=== PATIENT | male | born 1985 | race Caucasian/White ===

== ENCOUNTER 2021-02-12 19:25 | Emergency (ER) | payer SELFPAY ==
--- NOTE | 2021-02-12 20:04 | EDM.PDOC ---
ED HPI GENERAL MEDICAL PROBLEM - General Chief Complaint: Skin Complaint Stated Complaint: SHINGLES Time Seen by Provider: 02/12/21 20:00 - History of Present Illness INITIAL COMMENTS - FREE TEXT/NARRATIVE: History of present illness: [] Review of systems: As per history of present illness and below otherwise all systems reviewed and negative. Past medical history: As per history of present illness and as reviewed below otherwise noncontributory. This patient has had a splenectomy and consideration himself therefore immunocompromise says that he had pain in the right groin getting 08 February. By 10 February he had a rash starting in the crease. Rash has become extensive around to the right flank into the right groin and in the superficial right thigh. Its excruciating pain and hurts to touch it. It is too painful to put his pants on but he forced himself to do so and come in today to try to get help. He suspects it might be shingles. He has no systemic signs of infection at this point. He also cannot take NSAIDs because of a history of renal insufficiency. Surgical history: As per history of present illness and as reviewed below otherwise noncontributory. Social history: No reported history of drug or alcohol abuse. Family history: As per history of present illness and as reviewed below otherwise noncontributory. Physical exam: Constitutional - well developed, well-nourished and in no acute distress HEENT - normocephalic, no evidence of trauma - external nose and mouth normal - no mass in neck and no JVD - mucosae moist EYES - full EOM, PERRL, no icterus - no evidence of inflammation, injection, or drainage Respiratory - no respiratory distress, equal bilateral expansion Musculoskeletal no gross deformity of long bones or joints - no tenderness, swelling or edema Neurologic - Alert and oriented times four - CN II-XII grossly intact - motor sensory and coordination symmetrically normal Psychiatric - appropriate mood and affect with normal thought content Hematologic - No petechiae or purpura - mucosa appropriate color and sclera not pale - normal nail bed color and refill Integument -the patient has a rash that is typical for shingles but quite extensive although only in the dermatome of the lowest lateral posterior lumbar area around to the inguinal area and proximal thigh. He has no other rash. It is a maculopapular rash with some vesicles. No evidence of trauma - normal turgor Diagnostics: [] Therapeutics: [] Impression: [] Plan: [] Definitive disposition and diagnosis as appropriate pending reevaluation and review of above. right upper leg/back Pain Score (Numeric/FACES): 6 - Related Data Allergies Allergy/AdvReac Type Severity Reaction Status Date / Time No Known Allergies Allergy Verified 02/12/21 20:00 Home Meds: Home Meds Acetaminophen/oxyCODONE [Percocet 325-5 MG] 1 - 2 each PO Q4HR PRN #20 tab 02/12/21 [Rx] Sertraline HCl [Zoloft] 50 mg PO DAILY 02/12/21 [History] buPROPion HCL [Wellbutrin Xl] 300 mg PO DAILY 02/12/21 [History] lisinopriL [Lisinopril] 10 mg PO DAILY 02/12/21 [History] methylPREDNISolone [Medrol Dose Pack] 4 mg PO DAILY #21 tab 02/12/21 [Rx] valACYclovir HCl [valACYclovir] 1,000 mg PO TID 10 Days #30 tablet 02/12/21 [Rx] ED ROS GENERAL - Review of Systems Review Of Systems: Comprehensive ROS is negative, except as noted in HPI. ED EXAM, SKIN/RASH Exam: See Below Text/Narrative:: My physical exam is in the HPI Course - Vital Signs Last Recorded V/S: Last Vital Signs Temp 36.1 C 02/12/21 20:02 Pulse 102 H 02/12/21 20:02 Resp 18 02/12/21 20:02 BP 147/91 H 02/12/21 20:02 Pulse Ox 96 02/12/21 20:02 - Orders/Labs/Meds Meds: Medications Discontinued Medications Generic Name Dose Route Start Last Admin Trade Name Freq PRN Reason Stop Dose Admin Dexamethasone 10 mg 02/12/21 20:23 Dexamethasone 10 Mg/Ml Sdv IM 02/12/21 20:24 STAT STA Oxycodone/Acetaminophen 1 tab 02/12/21 20:23 Acetaminophen/Oxycodone 325-10 Mg Tab PO 02/12/21 20:24 ONETIME ONE Valacyclovir HCl 1,000 mg 02/12/21 20:25 Valacyclovir 500 Mg Tab PO 02/12/21 20:26 ONETIME ONE Departure - Departure Time of Disposition: 20:40 Disposition: Home, Self-Care 01 Condition: Good Clinical Impression: Shingles, History of splenectomy, History of renal insufficiency - Discharge Information Prescriptions: methylPREDNISolone [Medrol Dose Pack] 4 mg PO DAILY #21 tab Acetaminophen/oxyCODONE [Percocet 325-5 MG] 1 - 2 each PO Q4HR PRN #20 tab PRN Reason: Pain (Severe 7-10) valACYclovir HCl [valACYclovir] 1,000 mg PO TID 10 Days #30 tablet Instructions: Shingles, [id number] Referrals: PCP,None [Primary Care Provider] - Forms: ED Department Discharge Additional Instructions: If you get a stiff neck and headache with vomiting or if you get a high fever or if you get ration in the area of its not around one side of your body in 1 general area you should return because of your history of splenectomy and possible immunocompromise. [facility] - [facility] Care [address] [place] [address] [place] [address] My discharge Sepsis Event Note (ED) - Focused Exam Vital Signs: Vital Signs Temp Pulse Resp BP Pulse Ox 02/12/21 20:02 36.1 C 102 H 18 147/91 H 96
[2021-02-12] MEDS ORDERED: Acetaminophen/oxyCODONE 325-10 MG Tab PO ONE (20:23)
[2021-02-12] MEDS ORDERED: Dexamethasone 10 MG/ML SDV IM STA (20:23)
[2021-02-12] MEDS ORDERED: valACYclovir 500 MG Tab PO ONE (20:25)
== END 2021-02-12 21:08 | disposition home or self-care (01) ==
LOC: MW.ED 19:25
DX: B02.9 Zoster without complications (principal); Z90.81 Acquired absence of spleen; Z87.448 Personal history of other diseases of urinary system; Z79.899 Other long term (current) drug therapy
CPT/HCPCS: 96372; 99282; A9270; J1100; 99283

== ENCOUNTER 2021-03-25 21:19 | Emergency (ER) | payer SELFPAY ==
[2021-03-25] MEDS ORDERED: Ondansetron 4 MG/2 ML SDV IVPUSH ONE (21:56)
[2021-03-25] MEDS ORDERED: Sodium Chloride 0.9% 1,000 ML IV ONE ×2 (21:56→21:59)
[2021-03-25] MEDS ORDERED: Ketorolac 30 MG/ML SDV IVPUSH ONE (21:56)
[2021-03-25] MEDS ORDERED: Sodium Chloride 0.9% 10 ML Syringe FLUSH PRN (21:56)
[2021-03-25] MEDS ORDERED: Sodium Chloride 0.9% 2.5 ML Syringe FLUSH PRN (21:56)
[2021-03-25] MEDS ORDERED: fentaNYL 50 MCG/ML SDV IVPUSH ONE ×2 (21:56→23:22)
[2021-03-25 22:18] LABS: BLOOD UREA NITROGEN,BUN 18 mg/dL (7.0-18.0); CARBON DIOXIDE,CO2 28.3 mmol/L (21.0-32.0); CHLORIDE,CL 104 mmol/L (98-107); GLUCOSE RANDOM 121 mg/dL (74-106); LIPASE 123 U/L (73-393); POTASSIUM,K 3.9 mmol/L (3.5-5.1); SODIUM,NA 143 mmol/L (136-148)
--- NOTE | 2021-03-25 22:19 | EDM.PDOC ---
ED HPI GENERAL MEDICAL PROBLEM - General Chief Complaint: Genitourinary Problem Stated Complaint: URINATING BLOOD Time Seen by Provider: 03/25/21 21:50 - History of Present Illness INITIAL COMMENTS - FREE TEXT/NARRATIVE: HISTORY AND PHYSICAL: History of present illness: This is a 36-year-old gentleman with history significant for hypertension and kidney stone who presents to the ER today secondary to hematuria and flank pain that started since Friday with worsening hematuria today. Patient reports that he was diagnosed with a 5 mm stone when he was in [place] on February 26 that required a ureteral stent and antibiotics. Patient reports that he had completed his antibiotics and was doing well. Patient reports that he has a follow-up appointment on March 27 and was scheduled to fly out of [place] tomorrow morning so that he can see his urologist in [place]. Patient reports that he flew in to [place] on Friday and during his flight he started feeling pain and discomfort in his flank region. Patient reports that he started noticing blood-tinged urine throughout the course of the weekend with increasing degrees of colicky flank pain. Patient reports that the urine has become darker in color today and so came to the ER for further evaluation. Patient denies any recent fevers, shakes, chills. Patient denies any dysuria but does have frequency and urgency. Patient denies any chest pain or shortness of breath. Patient denies any abdominal pain or discomfort and reports his majority of his pain is in his flanks. Patient has any recent cough cold or rhinorrhea. Patient reports he has had decreased p.o. intake and significant nausea over the last 24 hours and was not able to keep down his antihypertensive medications today. Review of systems: As per history of present illness and below otherwise all systems reviewed and negative. Past medical history: As per history of present illness and as reviewed below otherwise noncontributory. Surgical history: As per history of present illness and as reviewed below otherwise noncontributory. Social history: No reported history of drug abuse. Family history: As per history of present illness and as reviewed below otherwise noncontribut ory. Physical exam: This patient was seen and evaluated during the 2019 SARS-CoV-2 novel coronavirus pandemic period. Community viral transmission is ongoing at time of this encounter and the emergency department is operating under pandemic response procedures. Constitutional: Patient is oriented to person, place, and time. Appears well- developed and well-nourished. No distress. HEENT: Moist mucous membranes Head: Normocephalic and atraumatic Eyes: Right eye exhibits no discharge. Left eye exhibits no discharge. No scleral icterus Neck: Normal range of motion. No tracheal deviation present. Cardiovascular: Normal rate and regular rhythm. Pulmonary: Effort normal, no respiratory distress. Abd: Soft, nondistended, no rebound/guarding, no psoas or obturator signs, no tenderness at Mcberney's point, no Marley's sign. Pt does not present with an exam that would be consistent with an acute surgical abdomen at this time with tenderness palpation to his right flank Musculoskeletal: Normal range of motion Neurologic: Alert and oriented to person, place and time. Skin: [place], warm and dry. Psychiatric: Normal mood and affect. Behavior is normal. Judgment and thought content normal. Nursing note and vital signs have been reviewed Diagnostics: CBC, CMP, urinalysis, CTA of the abdomen pelvis without IV contrast Therapeutics: NSS x2 L, Zofran, Toradol, fentanyl Assessment and plan: 36-year-old gentleman with history significant for 5 mm kidney stone that required a ureteral stent and antibiotics when he was in [place] on February 26 who presents ER today secondary to recurrence of his hematuria and flank pain that started on Friday and is progressively worsening over the last 48 hours. Patient denies any recent fevers, shakes, chills. Patient denies any dysuria but does have frequency and urgency. Patient will have a CT scan of his abdomen and pelvis performed as well as urinalysis to assess for any infection. Patient will be given adequate analgesia while here in the ED and hydration and will be reevaluated after the CT scan of the abdomen pelvis. 11:37 PM: Patient's labs were evaluated. Patient's urinalysis does not reveal any evidence of a urinary tract infection but does reveal a significant mount of blood consistent with patient's complaint. Patient is afebrile here in the ED and does not complain of any fevers at home. Patient's white count is slightly elevated however no left shift. Patient CT scan was reviewed and evaluated with the patient and he was given a copy that he can take it to his urologist on Friday. Patient has a mild amount of hydronephrosis with a 3 mm stone adjacent to his ureteral stent on the right side. At this time, the patient's pain appears to be well controlled. Patient be discharged home with a prescription for pain medicines to take until he is able to follow-up with his urologist as scheduled on Friday. Reassessment at the time of disposition demonstrates that the patient is in no acute distress. The patient has remained stable throughout the entire ED visit and is without objective evidence for acute process requiring urgent intervention or hospitalization. The patient is stable for discharge, counseling is provided as documented above, discussed symptomatic treatment and specific conditions for return. I have spoken with the patient/caregiver and discussed todays findings, in addition to providing specific details for the plan of care. Questions are answered and there is agreement with the plan. Definitive disposition and diagnosis as appropriate pending reevaluation and review of above. - Related Data Allergies Allergy/AdvReac Type Severity Reaction Status Date / Time tree nut Allergy Other Verified 03/25/21 21:50 Home Meds: Home Meds lisinopriL [Lisinopril] 10 mg PO DAILY 02/12/21 [History] Ibuprofen 600 mg PO Q6HR PRN #30 tablet 03/25/21 [Rx] Ondansetron [Zofran ODT] 4 mg PO Q6H PRN #12 tab.dis 03/25/21 [Rx] traMADol [Ultram] 50 mg PO Q6H PRN #12 tab 03/25/21 [Rx] Past Medical History HEENT History: Reports: None Cardiovascular History: Reports: Hypertension Respiratory History: Reports: None Gastrointestinal History: Reports: None Genitourinary History: Reports: None Musculoskeletal History: Reports: None Neurological History: Reports: None Psychiatric History: Reports: Anxiety, Depression Endocrine/Metabolic History: Reports: None Insulin Pump Model and Reclamation Engineer: None Hematologic History: Reports: None Immunologic History: Reports: None Oncologic (Cancer) History: Reports: None Dermatologic History: Reports: None - Infectious Disease History Infectious Disease History: Reports: Chicken Pox - Past Surgical History Head Surgeries/Procedures: Reports: None GI Surgical History: Reports: Other (See Below) Other GI Surgeries/Procedures: Splenectomy ED ROS GENERAL - Review of Systems Review Of Systems: See Below ED EXAM, GENERAL - Physical Exam Exam: See Below Course - Vital Signs Last Recorded V/S: Last Vital Signs Temp 96.4 F L 03/25/21 21:34 Pulse 102 H 03/25/21 21:34 Resp 20 07/18/21 21:34 BP 168/105 H 03/25/21 21:34 Pulse Ox 98 03/25/21 21:34 - Orders/Labs/Meds Orders: Active Orders 24 hr Category Date Time Status CULTURE URINE [MREF] Stat Lab 03/25/21 21:45 Received Sodium Chloride 0.9% [Saline Flush] Med 03/25/21 21:56 Active 10 ml FLUSH ASDIRECTED PRN Sodium Chloride 0.9% [Saline Flush] Med 03/25/21 21:56 Active 2.5 ml FLUSH ASDIRECTED PRN Saline Lock Insert [OM.PC] Stat Oth 03/25/21 21:58 Ordered Medication Orders Sodium Chloride (Sodium Chloride 0.9% 10 Ml Syringe) 10 ml FLUSH ASDIRECTED PRN PRN Reason: Keep Vein Open Sodium Chloride (Sodium Chloride 0.9% 2.5 Ml Syringe) 2.5 ml FLUSH ASDIRECTED PRN PRN Reason: Keep Vein Open Labs: Laboratory Tests 03/25/21 03/25/21 03/25/21 Range/Units 21:45 21:45 21:45 WBC 14.39 H (4.0-11.0) K/uL RBC 4.52 (4.50-5.90) M/uL Hgb 14.2 (13.0-17.0) g/dL Hct 40.9 (38.0-50.0) % MCV 90.5 (80.0-98.0) fL MCH 31.4 (27.0-32.0) pg MCHC 34.7 (31.0-37.0) g/dL RDW Std Deviation 50.7 (28.0-62.0) fl RDW Coeff of [place] 15 (11.0-15.0) % Plt Count 395 (150-400) K/uL MPV 11.80 (7.40-12.00) fL Neut % (Auto) 47.6 L (48.0-80.0) % Lymph % (Auto) 36.3 (16.0-40.0) % [place] % (Auto) 9.4 (0.0-15.0) % Eos % (Auto) 5.5 (0.0-7.0) % Baso % (Auto) 1.2 (0.0-1.5) % Neut # (Auto) 6.9 H (1.4-5.7) K/uL Lymph # (Auto) 5.2 H (0.6-2.4) K/uL [place] # (Auto) 1.4 H (0.0-0.8) K/uL Eos # (Auto) 0.8 H (0.0-0.7) K/uL Baso # (Auto) 0.2 H (0.0-0.1) K/uL Nucleated RBC % 0.0 /100WBC Nucleated RBCs # 0 K/uL Sodium 143 (136-148) mmol/L Potassium 3.9 (3.5-5.1) mmol/L Chloride 104 (98-107) mmol/L Carbon Dioxide 28.3 (21.0-32.0) mmol/L BUN 18 (7.0-18.0) mg/dL Creatinine 1.3 (0.8-1.3) mg/dL Est Cr Clr Drug Dosing TNP Estimated GFR (MDRD) > 60.0 ml/min Glucose 121 H (74-106) mg/dL Calcium 8.1 L (8.5-10.1) mg/dL Total Bilirubin 0.3 (0.2-1.0) mg/dL AST 18 (15-37) IU/L ALT 27 (14-63) IU/L Alkaline Phosphatase 150 H (46-116) U/L Total Protein 7.2 (6.4-8.2) g/dL Albumin 3.9 (3.4-5.0) g/dL Globulin 3.3 (2.6-4.0) g/dL Albumin/Globulin Ratio 1.2 (0.9-1.6) Lipase 123 (73-393) U/L Urine Color BROWN Urine Appearance SLT CLOUDY Urine pH 6.5 (5.0-8.0) Ur Specific [place] >= 1.030 (1.001-1.035) Urine Protein >=300 H (NEGATIVE) mg/dL Urine Glucose (UA) NEGATIVE (NEGATIVE) mg/dL Urine Ketones NEGATIVE (NEGATIVE) mg/dL Urine Occult Blood LARGE H (NEGATIVE) Urine Nitrite NEGATIVE (NEGATIVE) Urine Bilirubin NEGATIVE (NEGATIVE) Urine Urobilinogen 1.0 (<2.0) EU/dL Ur Leukocyte Esterase TRACE H (NEGATIVE) Urine RBC TOO NUMEROUS TO CT (0-2/HPF) Urine WBC 0-2 (0-5/HPF) Ur Epithelial Cells RARE (NONE-FEW) Calcium Oxalate Crystal FEW (NEGATIVE) Urine Bacteria FEW (NEGATIVE) Meds: Medications Generic Name Dose Route Start Last Admin Trade Name Caridad PRN Reason Stop Dose Admin Sodium Chloride 10 ml 03/25/21 21:56 Sodium Chloride 0.9% 10 Ml Syringe FLUSH ASDIRECTED PRN Keep Vein Open Sodium Chloride 2.5 ml 03/25/21 21:56 Sodium Chloride 0.9% 2.5 Ml Syringe FLUSH ASDIRECTED PRN Keep Vein Open Discontinued Medications Generic Name Dose Route Start Last Admin Trade Name Sathyaq PRN Reason Stop Dose Admin Fentanyl 50 mcg 03/25/21 21:56 03/25/21 22:22 Fentanyl 50 Mcg/Ml Sdv IVPUSH 03/25/21 21:57 50 mcg ONETIME ONE Administration Fentanyl 100 mcg 03/25/21 23:22 Fentanyl 50 Mcg/Ml Sdv IVPUSH 03/25/21 23:23 ONETIME ONE Sodium Chloride 1,000 mls @ 999 mls/hr 03/25/21 21:56 03/25/21 22:24 Normal Saline IV 03/25/21 22:56 999 mls/hr .Bolus ONE Administration Sodium Chloride 1,000 mls @ 999 mls/hr 03/25/21 21:59 03/25/21 22:22 Normal Saline IV 03/25/21 22:59 999 mls/hr .Bolus ONE Administration Ketorolac Tromethamine 30 mg 03/25/21 21:56 03/25/21 22:22 Ketorolac 30 Mg/Ml Sdv IVPUSH 03/25/21 21:57 30 mg ONETIME ONE Administration Ondansetron HCl 4 mg 03/25/21 21:56 03/25/21 22:22 Ondansetron 4 Mg/2 Ml Sdv IVPUSH 03/25/21 21:57 4 mg ONETIME ONE Administration Departure - Departure Time of Disposition: 23:38 Disposition: Home, Self-Care 01 Condition: Good Clinical Impression: Hydronephrosis concurrent with and due to calculi of kidney and ureter, S/P ureteral stent placement - Discharge Information Instructions: Kidney Stones, [id number], Hydronephrosis, Ureteral Stent Implantation, Care After, Ureteral Stent Implantation Referrals: PCP,None [Primary Care Provider] - Forms: ED Department Discharge Additional Instructions: You were seen and evaluated in the ER today secondary to pain to your right flank after stent placement and diagnosis of a stone in [place] on February 26. The [address] scan that we obtained today reveals a mild amount of swelling of your right kidney with a 3 mm stone at the junction of where your kidney meets your ureter right next to the ureteral stent. Your labs were essentially unremarkable. At this time, the pain that you are experiencing is likely secondary to bleeding from the ureteral stent and stone. Please keep your appointment with your urologist as scheduled on Friday to take the CT report that you were given with you so they can read it as well. You will be given a prescription for Ultram as well as ibuprofen to take and Zofran to assist with your nausea. The following information is given to patients seen in the emergency department who are being discharged to home. This information is to outline your options for follow-up care. We provide all patients seen in our emergency department with a follow-up referral. The need for follow-up, as well as the timing and circumstances, are variable depending upon the specifics of your emergency department visit. If you don't have a primary care physician on staff, we will provide you with a referral. We always advise you to contact your personal physician following an emergency department visit to inform them of the circumstance of the visit and for follow-up with them and/or the need for any referrals to a consulting specia list. The emergency department will also refer you to a specialist when appropriate. This referral assures that you have the opportunity for follow-up care with a specialist. All of these measure are taken in an effort to provide you with optimal care, which includes your follow-up. Under all circumstances we always encourage you to contact your private physician who remains a resource for coordinating your care. When calling for follow-up care, please make the office aware that this follow-up is from your recent emergency room visit. If for any reason you are refused follow-up, please contact the [facility] Emergency Department at and asked to speak to the emergency department charge nurse. [facility] Care [address] [place] [id number] [facility] [address] [place] [id number] Sepsis Event Note (ED) - Evaluation Sepsis Screening Result: Possible Sepsis Risk - Focused Exam Vital Signs: Vital Signs Temp Pulse Resp BP Pulse Ox 03/25/21 21:34 96.4 F L 102 H 20 168/105 H 98 - My Orders Last 24 Hours: My Active Orders 03/25/21 21:56 Sodium Chloride 0.9% [Saline Flush] 10 ml FLUSH ASDIRECTED PRN Sodium Chloride 0.9% [Saline Flush] 2.5 ml FLUSH ASDIRECTED PRN 03/25/21 21:58 Saline Lock Insert [OM.PC] Stat - Assessment/Plan Last 24 Hours: My Active Orders 03/25/21 21:56 Sodium Chloride 0.9% [Saline Flush] 10 ml FLUSH ASDIRECTED PRN Sodium Chloride 0.9% [Saline Flush] 2.5 ml FLUSH ASDIRECTED PRN 03/25/21 21:58 Saline Lock Insert [OM.PC] Stat
--- NOTE | 2021-03-25 23:16 | CT ---
For Patients: As a result of the Century Cures Act, medical imaging exams and procedure reports are released immediately into your electronic medical record. You may view this report before your referring provider. If you have questions, please contact your health care provider. INDICATION: left flank pain with hematuria CT ABDOMEN AND PELVIS WITHOUT CONTRAST TECHNIQUE: Multidetector CT imaging was performed through the abdomen and pelvis without intravenous contrast administration. Coronal and sagittal reconstructions were generated. COMPARISON: None. FINDINGS: Lower chest: Lung bases are clear. Liver: Within normal limits. Gallbladder and bile ducts: No gallbladder wall thickening or calcified gallstones. No biliary dilation identified. Pancreas: Unremarkable. Spleen: Status post splenectomy. Adrenals: No nodules or masses. Kidneys, ureters, and urinary bladder: Right ureteral stent with its proximal coil in the right renal pelvis and its distal coil within the urinary bladder. Tiny 3 millimeter stone alongside the stent at the right ureteral pelvic junction on image 75 of series 202. No other urinary tract stone identified. Mild dilation of the right intrarenal collecting system and right ureter. No left-sided urinary tract stone or left hydronephrosis. Bladder wall prominence due to nondistention. No bladder mass or definite wall thickening. Gastrointestinal tract: Normal caliber bowel without wall thickening. The appendix is normal. Vascular structures: Normal for age. Peritoneum: No free air, abscess, or significant free fluid. Lymph nodes: No pathologically enlarged nodes identified. Reproductive organs: No pelvic masses. Bones: Normal for age. IMPRESSION: 1. Right ureteral stent in place. 2. 3 millimeter stone at the right ureteropelvic junction alongside the stent. 3. Mild right hydroureteronephrosis. 4. Status post splenectomy. GEORGETTE MONTEIRO MD [employer] Dictated by Kalen Monteiro MD @ 03/25/2021 11:10:22 PM Please note that all CT scans at this facility use dose modulation, iterative reconstruction, and/or weight-based dosing when appropriate to reduce radiation dose to as low as reasonably achievable. Dictated by: Kalen Monteiro MD @ 03/25/2021 23:14:16 (Electronically Signed)
== END 2021-03-26 00:19 | disposition home or self-care (01) ==
LOC: MW.ED 21:19
DX: N13.2 Hydronephrosis with renal and ureteral calculous obstruction (principal); I10 Essential (primary) hypertension; Z91.010 Allergy to peanuts; Z79.899 Other long term (current) drug therapy; Z96.0 Presence of urogenital implants
CPT/HCPCS: 36415; 74176; 80053; 81001; 83690; 85025; 87086; 96374; 96375; 96376; 99284; J1885; J2405; J3010; J7030